=== PATIENT | male | born 1975 | race Caucasian/White ===

== ENCOUNTER 2021-11-04 12:40 | Outpatient (CLI) | payer OTHER, SELFPAY ==
--- NOTE | ~2021-11-04 | CT_ITS ---
EXAMINATION: CT IAC/mastoids BI wo con DATE: 11/04/2021 13:12 INDICATION: Hearing loss. TECHNIQUE: Computed tomography (CT) of the temporal bones was performed without intravenous contrast. Automated exposure control and iterative reconstruction technique were employed. The dose-length pro duct was 544.15 mGy-cm. COMPARISON: None FINDINGS: RIGHT TEMPORAL BONE: The internal auditory canal, cochlea, vestibule, semicircular canals, vestibular aqueduct, carotid ca nal, jugular bulb, facial nerve course, ossicles, scutum, Prussak space, tympanic membrane, and masto id air cells are normal. There is a small volume of cerumen in the external auditory canal. LEFT TEMPORAL BONE: The internal auditory canal, cochlea, vestibule, semicircular canals, vestibular aqueduct, carotid ca nal, jugular bulb, facial nerve course, ossicles, scutum, Prussak space, tympanic membrane, and masto id air cells are normal. There is a small volume of cerumen in the external auditory canal. IMPRESSION: 1. Normal temporal bones. Reviewed, dictated and finalized at location A. IMPRESSION: 1. Normal temporal bones.
== END 2021-11-04 12:41 | disposition home or self-care (01) ==
PROVIDERS: PCP Internal Medicine
DX: H91.90 Unspecified hearing loss, unspecified ear (principal)
CPT/HCPCS: 70480